=== PATIENT | female | born 2005 | race African-American/Black ===

== ENCOUNTER 2024-03-05 08:51 | Emergency (ER) | payer MEDICAID ==
[~2024-03-05] VITALS: Ht 172.7 cm; Wt 68.0 kg
[2024-03-05 08:59] VITALS: O2SAT 99
[2024-03-05 09:16] LABS: CLARITY URINE CLEAR (CLEAR); COLOR URINE YELLOW (YELLOW); GLUCOSE URINE NEGATIVE (NEGATIVE); KETONES URINE NEGATIVE (NEGATIVE); LEUKOCYTE ESTERASE URINE 1+ (NEGATIVE); NITRITE URINE NEGATIVE (NEGATIVE); OCCULT BLOOD URINE NEGATIVE (NEGATIVE); PH URINE 8.5 (4.5-8.0); PROTEIN URINE NEGATIVE (NEGATIVE)
[2024-03-05 09:31] LABS: BACTERIA URINE 1+; RBC URINE 0-2 /hpf (0-2); SQUAMOUS EPITHELIAL CELL URINE FEW /lpf (RARE/1+); YEAST URINE NONE SEEN
[2024-03-05] MEDS ORDERED: NITR-87 MT (09:49)
[2024-03-05] MEDS: NITROFURANTOIN 100MG M/M CAPSULE PO ONE (09:53)
[2024-03-05 09:56] VITALS: BP 121/78; PULSE 79; RESP 16; TEMP 98.3
== END 2024-03-05 09:57 | disposition home or self-care (01) ==
LOC: ER 09:08
DX: R10.816 Epigastric abdominal tenderness (principal); J45.909 Unspecified asthma, uncomplicated
CPT/HCPCS: 81003; 81025; 99283

== ENCOUNTER 2025-03-11 18:50 | Emergency (ER) | payer MEDICAID ==
[~2025-03-11] VITALS: Ht 165.1 cm; Wt 97.0 kg
[~2025-03-11 18:50] MED LIST: NITR-87 MT
[2025-03-11 18:51] VITALS: O2SAT 98
[2025-03-11 19:03] VITALS: BP 131/93; PULSE 96; RESP 18; TEMP 36.8; O2SAT 97
== END 2025-03-11 21:51 | disposition home or self-care (01) ==
LOC: ER 18:50
DX: S93.401A Sprain of unspecified ligament of right ankle, initial encounter (principal); J45.909 Unspecified asthma, uncomplicated; X58.XXXA Exposure to other specified factors, initial encounter; Y93.89 Activity, other specified; Y92.89 Other specified places as the place of occurrence of the external cause; Y99.8 Other external cause status
CPT/HCPCS: 99283; 73610; A6449